=== PATIENT | female | born 1995 ===

== ENCOUNTER 2017-08-28 15:57 | Emergency (ER) | payer OTHER ==
[~2017-08-28] VITALS: Ht 175.3 cm; Wt 61.4 kg
[2017-08-28 16:06] VITALS: TEMP 36.4; Ht 175.3 cm; Wt 61.4 kg
[2017-08-28 16:59] LABS: ISTAT CREATININE 0.8 mg/dl (0.6-1.3); ISTAT IONIZED CALCIUM 1.15 mmol/l (1.12-1.32)
[2017-08-28 17:05] VITALS: BP 132/91; PULSE 67; O2SAT 100
--- NOTE | 2017-08-28 19:03 | EMERGENCY ROOM VISIT NOTE ---
History Report prepared by Earnestine: Melinda Ohara Under the Supervision of: Dr. Remi Hwang M.D. First contact with patient: 16:07 Chief Complaint: SYNCOPE Stated Complaint: SYNCOPE Nursing Triage Summary: patient brought in by ems ems reports patient unresponsive when they arrived patient reports donating plasma at noon and not eating or drinking fluid after patient was in lab at [facility] and had a syncopal episode patient last ate and drank at 1100 History of Present Illness The patient is a 22 year old female who presents to the Emergency Room with complaints of an episode of syncope less than 1 hour ago. The patient presents to the ED by EMS. She was standing in cadaver lab when she became unresponsive. She does not remember falling, but was told that she fell onto someone standing nearby then gently to the ground. She was unresponsive for 4-5 minutes. She felt lightheaded and weak prior to the episode and was losing her vision. She has never passed out before. She notes that she donated plasma 4 hours ago. She also donated plasma 2 days ago. She donates plasma regularly. At the end of the process, she had swelling to her arm which has not happened before. She was told she might have a hematoma. She currently feels back to normal. She had been feeling well previously. She denies any chest pain or SOB. This was not her first cadaver lab. She did not eat lunch after donating plasma today. She denies any recent travel. She denies any history of diabetes, blood clots, or any other medical problems. She denies any chance of . Source of History: patient Onset: less than 1 hour ago Position: head Quality: other (syncope) Timing: other (episodic) Associated Symptoms: + weakness, No chest pain, No SOB Note: Pt reports feeling lightheaded. Review of Systems See HPI for pertinent positives & negatives. A total of 10 systems reviewed and were otherwise negative. Past Medical & Surgical No history of diabetes or blood clots. Family History No pertinent family history stated. Social History Smoking Status: Never Smoker Occupation Status: [employer] student Physical Exam Vital Signs Date Time Temp Pulse Resp B/P (MAP) Pulse Ox O2 Delivery O2 Flow Rate FiO2 08/28/17 17:05 67 18 132/91 100 08/28/17 16:06 36.4 67 18 138/108 100 Room Air Physical Exam GENERAL: Patient is in no acute distress. HEENT: No acute trauma, normocephalic atraumatic, mucous membranes moist, no nasal congestion, no scleral icterus. NECK: No stridor, no adenopathy, no meningismus, trachea is midline. LUNGS: Clear to auscultation bilaterally, no wheeze, no rhonchi, breath sounds equal. HEART: Without murmurs gallops or rubs, regular rate and rhythm. ABDOMEN: Soft, nontender, bowel sounds positive, no hernias, no peritonitis. EXTREMITIES: No cyanosis or edema, full range of motion of all the joints without pain or difficulty, no signs for acute trauma. There is a recent venipuncture site in the right antecubital fossa with a forming hematoma. NEUROLOGIC: Oriented x 3, no acute motor or sensory deficits, no focal weakness. SKIN: No rash, no jaundice, no diaphoresis. Medical Decision & Procedures Laboratory Results Test 08/28/17 16:37 08/28/17 16:47 Bedside Hemoglobin 15.0 g/dl (12.0-16.0) Bedside Hematocrit 44 % (37-47) Bedside Sodium 140 mEq/L (135-144) Bedside Potassium 4.0 mEq/L (3.3-5.0) Bedside Chloride 102 mEq/L (101-112) Bedside Total CO2 25 mEq/l (24-31) Anion Gap 18.0 mmol/L (16-25) Bedside Blood Urea Nitrogen 10 mg/dl (7-18) Bedside Creatinine 0.8 mg/dl (0.6-1.3) Bedside Glucose (other) 96 mg/dl (70-99) Bedside Ionized Calcium (Alicia) 1.15 mmol/l (1.12-1.32) Urine Test NEG (NEG) Urine dip shows protein, no signs of infection. Urine negative. Laboratory results reviewed by me. ECG Per My Interpretation Indication: syncope Rate (beats per minute): 60 Rhythm: normal sinus Findings: no ectopy, other (no ST elevation, no PVC) ED Course 1607: The patient was evaluated in room B10. A complete history and physical exam was performed. 1655: Reevaluated the patient. Discussed results and discharge instructions: She verbalized understanding and agreement. The patient is ready for discharge. Medical Decision Differential diagnoses considered include vasovagal syncope, dehydration, dysrhythmia, anemia, , urinary infection. There is no anemia. No significant electrolyte abnormality or kidney failure. Urine dip does not show evidence for infection. testing is negative. EKG shows a normal sinus rhythm, acute ischemia, no dysrhythmia. On exam, the patient was not febrile or toxic. She felt back to baseline. The patient presents with syncope, likely vasovagal syncope. She had not eaten lunch, she had just given plasma, in fact, she had given plasma twice in just a few days. She was at cadaver lab and standing. She did not suffer trauma. The patient was reassured, she is being discharged home. She can return for any return of symptoms. Hydration was encouraged. Medication Reconcilliation Current Medication List: was personally reviewed by me Blood Pressure Screening Patient's blood pressure: Elevated blood pressure Blood pressure disposition: Elevated BP felt to be situational Impression Primary Impression: Syncope Scribe Attestation The scribe's documentation has been prepared under my direction and personally reviewed by me in its entirety. I confirm that the note above accurately reflects all work, treatment, procedures, and medical decision making performed by me. Departure Information Dispostion Home / Self-Care Referrals [facility] (PCP) Forms HOME CARE DOCUMENTATION FORM, IMPORTANT VISIT INFORMATION Patient Instructions My [facility] Additional Instructions stay hydrated eat regular meals maybe back off on the number of plasma donations per week return if worsening lab testing, urine testing and ECG today were ok
== END 2017-08-28 17:21 | disposition home or self-care (01) ==
LOC: EDBD 15:57 → C.EDB 15:59
DX: R55 Syncope and collapse (principal); R53.1 Weakness